=== PATIENT | female | born 1985 ===

== ENCOUNTER 2016-10-01 10:58 | Emergency (ER) | payer MEDICARE, MEDICAID ==
[2016-10-01 11:07] VITALS: BP 144/66; PULSE 76; RESP 18; TEMP 98; O2SAT 99
[2016-10-01 11:08] VITALS: BMI 43.1
[2016-10-01] MEDS ORDERED: Sodium Chloride 0.9% 500 ML IV STA (11:24)
--- NOTE | 2016-10-01 11:27 | ED PDOC ---
HPI: Back Time Seen by Provider: 10/01/16 11:16 Chief Complaint (Nursing): Back Pain Chief Complaint (Provider): Back pain History Per: Patient History/Exam Limitations: no limitations Onset/Duration Of Symptoms: Days (3) Current Symptoms Are (Timing): Still Present Additional Complaint(s): Pt. with R flank pain for 3 days. Increased frequency of urination. No dysuria. No abd pain. No nausea, vomit, diarrhea, headaches, chest pain, dyspnea. No neck pain. Past Medical History Reviewed: Nursing Documentation, Vital Signs Vital Signs: Last Vital Signs Temp 98 F 10/01/16 11:07 Pulse 76 10/01/16 11:07 Resp 18 10/01/16 11:07 BP 144/66 10/01/16 11:07 Pulse Ox 99 10/01/16 11:07 - Medical History PMH: Asthma - Surgical History Other surgeries: gastric bypass - Family History Family History: States: Unknown Family Hx - Social History Current smoker - smoking cessation education provided: No Alcohol: None Drugs: Denies - Immunization History Hx Tetanus Toxoid Vaccination: No Hx Influenza Vaccination: No Hx Pneumococcal Vaccination: No - Home Medications Home Medications: Ambulatory Orders Medication Instructions Recorded Albuterol HFA [Ventolin HFA 90 2 puff IH [id number] PRN #60 puff 12/31/13 mcg/actuation (8 g)] Promethazine DM [Phenergan DM 10 ml PO QID PRN #120 ml 12/31/13 Syrup] Sulfamethoxazole/Trimethopri 1 tab PO BID #20 tab 12/31/13 [Bactrim Ds 800 mg-160 mg] Albuterol HFA [Ventolin HFA 90 1 puff IH ASDIR #1 unit 01/30/15 mcg/actuation (8 g)] Azithromycin [Zithromax Z-Art] 250 mg PO DAILY #1 packet 01/30/15 Benzonatate [Tessalon Perles] 200 mg PO Q8H PRN #30 tab 01/30/15 Albuterol HFA [Ventolin HFA 90 2 puff IH [id number] #1 inhaler 06/10/15 mcg/actuation (8 g)] Azithromycin [Zithromax] 250 mg PO DAILY #6 tab 06/10/15 Guaifenesin/Dextromethorphan 20 ml PO Q4H PRN #1 bottle 06/10/15 [Delsym Cough+Chest Cngst Dm Lq] Prednisone 50 mg PO DAILY #4 tab 06/10/15 Olopatadine 0.1% Opht [Patanol 5 1 drop BOTHEYES BID #1 bottle 07/19/15 Ml] - Allergies Allergies/Adverse Reactions: Allergies Allergy/AdvReac Type Severity Reaction Status Date / Time No Known Allergies Allergy Verified 01/30/15 12:24 Review of Systems ROS Statement: Except As Marked, All Systems Reviewed And Found Negative Musculoskeletal: Positive for: Back Pain Physical Exam - Reviewed Nursing Documentation Reviewed: Yes Vital Signs Reviewed: Yes - Physical Exam Appears: Positive for: Non-toxic, No Acute Distress Head Exam: Positive for: ATRAUMATIC, NORMAL INSPECTION, NORMOCEPHALIC Skin: Positive for: Normal Color, Warm, DRY Eye Exam: Positive for: EOMI, Normal appearance, PERRL ENT: Positive for: Normal ENT Inspection Neck: Positive for: Normal, Painless ROM Cardiovascular/Chest: Positive for: Regular Rate, Rhythm Respiratory: Positive for: CNT, Normal Breath Sounds Gastrointestinal/Abdominal: Positive for: Bowel Sounds, Soft, Tenderness (mild left mid abd) Back: Positive for: Normal Inspection, R CVA Tenderness. Negative for: L CVA Tenderness Extremity: Positive for: Normal ROM Neurologic/Psych: Positive for: Alert, Oriented - Laboratory Results Result Diagrams: 10/01/16 11:50 10/01/16 11:50 Interpretation Of Abn Labs: no acute - ECG O2 Sat by Pulse Oximetry: 99 Pulse Ox Interpretation: Normal - CT Scan/US ct Other Rad Studies (CT/US): Read By Radiologist Other Rad Interpretation: no acute - Progress ED Course And Treament: 1320: Pt. stable. AAOx3. Tolerated PO with no issues. Ambulating. Disposition - Clinical Impression Clinical Impression: Back pain - Patient ED Disposition Is Patient to be Admitted: No Counseled Patient/Family Regarding: Studies Performed, Diagnosis, Need For Followup - Disposition Referrals: [facility] [Outside] - 10/02/16 Disposition: Routine/Home Disposition Time: 13:22 Condition: STABLE Additional Instructions: Return if not better in 3 days. Instructions: Back Pain (ED)
[2016-10-01 12:07] LABS: BASO # 0.1 K/uL (0.0-0.2); BASO % 0.9 % (0.0-2.0); EOS # 0.1 K/uL (0.0-0.7); EOS % 1.1 % (0.0-4.0); HEMOGLOBIN 12.4 g/dL (12.0-16.0); LYMPH # 1.3 K/uL (1.0-4.3); LYMPH % 17.5 % (20.0-40.0); MEAN CELL VOLUME 89.6 fl (81.0-99.0); MEAN CORPUSCULAR HEMOGLOBIN 29.6 pg (27.0-31.0); MEAN PLATELET VOLUME 11.1 fl (7.2-11.7); MONO # 0.6 K/uL (0.0-0.8); MONO % 8.4 % (0.0-10.0); NEUT # 5.3 K/uL (1.8-7.0); NEUT % 72.1 % (50.0-75.0); NRBC % 0.1 % (0.0-0.0); RBC 4.17 Mil/uL (3.80-5.20); RED CELL DISTRIBUTION WIDTH 13.7 % (11.5-14.5); WHITE BLOOD COUNT 7.4 K/uL (4.8-10.8)
[2016-10-01 12:19] LABS: ALB/GLOB RATIO 1.2 (1.0-2.1); ALT/SGPT 30 U/L (9-52); AST/SGOT 23 U/L (14-36); BLOOD UREA NITROGEN 16 mg/dl (7-17); CALCIUM 9.1 mg/dL (8.4-10.2); GFR AFRICAN-AMERICAN > 60; GFR NON-AFRICAN AMERICAN > 60; LIPASE 131 U/L (23-300)
--- NOTE | 2016-10-01 13:09 | CT ---
PROCEDURE: CT abdomen and pelvis dated 10/01/2016 HISTORY: R/O stone COMPARISON: None. TECHNIQUE: Contiguous axial images of the abdomen and pelvis. Oral contrast was administered. No IV contrast given. Coronal and Sagittal reformats generated. Radiation dose: Total exam DLP = 987.91 mGy-cm. This CT exam was performed using one or more of the following dose reduction techniques: Automated exposure control, adjustment of the mA and/or kV according to patient size, and/or use of iterative reconstruction technique. FINDINGS: LOWER THORAX: Minimal atelectasis and or scarring changes left lung base. Lung huggins are otherwise clear without infiltrate effusion or pneumothorax. There is a small hiatal hernia with wall thickening of the distal esophagus that could be due to protrusion of gastric mucosa this patient was apparent status post gastric sleeve procedure. Clinical correlation with history recommended LIVER: Liver is mildly enlarged measuring nearly 20 cm in CC dimension. Mild diffuse fatty hepatic infiltration. No obvious hepatic mass collection or calcification. . GALLBLADDER AND BILE DUCTS: Gallbladder is physiologically distended. No evidence of intraluminal gallbladder calculi. PANCREAS: Unremarkable. No mass. No ductal dilatation. SPLEEN: Unremarkable. No splenomegaly. ADRENALS: No adrenal lesions. KIDNEYS AND URETERS: Kidneys demonstrates symmetric size. No evidence of nephrolithiasis or hydronephrosis. BLADDER: Urinary bladder is incompletely distended which may account for slight thick-walled appearance. Possibility of cystitis should be excluded with clinical correlation and urinalysis. REPRODUCTIVE: Uterus and adnexal structures grossly unremarkable APPENDIX: Normal-appearing appendix of best seen on axial image number [id number]. No periappendiceal inflammatory changes. BOWEL: Evaluation of the bowel is limited due to the lack of oral contrast material. As mentioned above, there is a small hiatal hernia. Postoperative changes of the stomach likely in the secondary to the prior gastric sleeve procedure however clinical correlation with surgical history recommended. PERITONEUM: Unremarkable. No fluid collection. No free air. Tiny fat containing umbilical hernia. . LYMPH NODES: Unremarkable. No enlarged lymph nodes. VASCULATURE: Unremarkable. No aortic aneurysm. BONES: No fracture or destructive lesion. OTHER FINDINGS: None. IMPRESSION: No evidence of nephrolithiasis hydronephrosis. Small hiatal hernia with wall thickening of the distal esophagus likely due to protrusion of gastric mucosa however esophagitis not excluded. Postoperative changes of the stomach as above. The urinary bladder is incompletely distended which may in part account for thick-walled appearance. Rule out cystitis. Mild hepatomegaly. No evidence of acute appendicitis.
== END 2016-10-01 13:31 | disposition home or self-care (01) ==
LOC: H.ER 10:58
DX: M54.9 Dorsalgia, unspecified (principal); J45.909 Unspecified asthma, uncomplicated
CPT/HCPCS: 74176; 80053; 81025; 83690; 85025; 96374; 99283; J1885; J7040

== ENCOUNTER 2017-05-07 13:23 | Emergency (ER) | payer MEDICARE, MEDICAID ==
[2017-05-07 13:23] VITALS: BMI 43.1
[2017-05-07 13:59] VITALS: BP 125/70; PULSE 55; RESP 16; TEMP 97.8; O2SAT 100
[2017-05-07] MEDS ORDERED: Sodium Chloride 0.9% 1,000 ML IV STA (16:16)
--- NOTE | 2017-05-07 16:35 | ED PDOC ---
HPI: General Adult Time Seen by Provider: 05/07/17 16:06 Chief Complaint (Nursing): GI Problem History Per: Patient History/Exam Limitations: no limitations Onset/Duration Of Symptoms: Days (x 3) Current Symptoms Are (Timing): Still Present Additional Complaint(s): is a 31 year old female who presents to the emergency department complaining of vomiting since Sunday. Patient states vomiting initially associated with headache, but now associated with nausea, malaise, fatigue, intermittent RUQ pain and lightheadedness. Patient reports diarrhea chronically since gastric sleeve of April 2016. Denies any bloody stool, bloody or bilious vomiting, focal weakness, unsteady gait or difficulty with speech. Patient reports intermittent blurry vision that started after vomiting. PMD: [place] Against Medical Advice - AMA Patient Left Against Medical Advice: The patient declines admission to the hospital and wishes to leave the Emergency Department. This action is against my medical advice. This decision was made with informed refusal. The patient was told that admission to the hospital is necessary. Explanation of the reasons why were discussed. The risks of leaving were explained to the patient and include, but are not limited to, worsening of known or currently unknown conditions, permanent disability and from undiagnosed or untreated conditions. The patient has the capacity to make this informed decision and understands my explanation of the current medical problem and risks of leaving. The patient voluntarily accepts these risks and signed an AMA form documenting our conversation. The patient was given the opportunity to ask questions and reconsider. The patient was encouraged to return to the Emergency Department at any time for further care. Past Medical History Reviewed: Historical Data, Nursing Documentation, Vital Signs Vital Signs: Last Vital Signs Temp 97.8 F 05/07/17 13:55 Pulse 55 L 05/07/17 13:55 Resp 16 05/07/17 13:55 BP 125/70 05/07/17 13:55 Pulse Ox 100 05/07/17 16:50 - Medical History PMH: Asthma - Surgical History Other surgeries: Gastric Sleeve Surgery - Family History Family History: States: Unknown Family Hx - Immunization History Hx Tetanus Toxoid Vaccination: No Hx Influenza Vaccination: No Hx Pneumococcal Vaccination: No - Home Medications Home Medications: Ambulatory Orders Medication Instructions Recorded Albuterol HFA [Ventolin HFA 90 2 puff IH [id number] PRN #60 puff 12/31/13 mcg/actuation (8 g)] Promethazine DM [Phenergan DM 10 ml PO QID PRN #120 ml 12/31/13 Syrup] Sulfamethoxazole/Trimethopri 1 tab PO BID #20 tab 12/31/13 [Bactrim Ds 800 mg-160 mg] Albuterol HFA [Ventolin HFA 90 1 puff IH ASDIR #1 unit 01/30/15 mcg/actuation (8 g)] Azithromycin [Zithromax Z-Art] 250 mg PO DAILY #1 packet 01/30/15 Benzonatate [Tessalon Perles] 200 mg PO Q8H PRN #30 tab 01/30/15 Albuterol HFA [Ventolin HFA 90 2 puff IH [id number] #1 inhaler 06/10/15 mcg/actuation (8 g)] Azithromycin [Zithromax] 250 mg PO DAILY #6 tab 06/10/15 Guaifenesin/Dextromethorphan 20 ml PO Q4H PRN #1 bottle 06/10/15 [Delsym Cough+Chest Cngst Dm Lq] Prednisone 50 mg PO DAILY #4 tab 06/10/15 Olopatadine 0.1% Opht [Patanol 5 1 drop BOTHEYES BID #1 bottle 07/19/15 Ml] Famotidine [Pepcid] 40 mg PO DAILY PRN #30 tab 05/07/17 Ondansetron [Zofran] 4 mg PO Q8H PRN #20 tab 05/07/17 - Allergies Allergies/Adverse Reactions: Allergies Allergy/AdvReac Type Severity Reaction Status Date / Time No Known Allergies Allergy Verified 01/30/15 12:24 Review of Systems ROS Statement: Except As Marked, All Systems Reviewed And Found Negative Constitutional: Positive for: Malaise, Other (Fatigue) Eyes: Positive for: Other (Intermittent blurry vision after vomiting) Cardiovascular: Positive for: Light Headedness Gastrointestinal: Positive for: Nausea, Abdominal Pain (Intermittent RUQ), Diarrhea. Negative for: Vomiting (bilious or bloody), Hematochezia Neurological: Positive for: Other ((-): focal weakness, unsteady gait, diffuilcty with speech) - ECG O2 Sat by Pulse Oximetry: 100 (RA) Pulse Ox Interpretation: Normal Medical Decision Making Medical Decision Making: Time: 16:16 Impression: Intractable Vomiting Differentials include, but not limited to: Dehydration, Electrolyte Abnormalities, Pancreatic, Cholecystitis, Gastritis Plan: - CMP - Lipase - CBC - Partial Thromboplastin Time - Prothrombin Time - Dextrose 5%-0.9% NS 500 ml - Sodium Chloride 0.9% 1,000 ml IV 1,000 mls/hr - Pepcid 20 mg IVP STAT - Zofran Inj 8 mg IV STAT - Abdomen Complete Ultrasound Pt wants to leave before workup performed. Medical risks of leaving without full workup d/w pt and she wants to leave anyway. Oriented x 3. Signed AMA consent. Scribe Attestation: Documented by Saurabh Garnett, acting as a scribe for Cecile Rubi MD. Provider Scribe Attestation: All medical record entries made by the Scribe were at my direction and personally dictated by me. I have reviewed the chart and agree that the record accurately reflects my personal performance of the history, physical exam, medical decision making, and the department course for this patient. I have also personally directed, reviewed, and agree with the discharge instructions and disposition. Disposition - Clinical Impression Clinical Impression: Vomiting - Disposition Disposition: Against Medical Advice Disposition Time: 16:30 Condition: STABLE Additional Instructions: RETURN TO ER SOON POSSIBLE FOR EVALUATION Prescriptions: Famotidine [Pepcid] 40 mg PO DAILY PRN #30 tab PRN Reason: reflux Ondansetron [Zofran] 4 mg PO Q8H PRN #20 tab PRN Reason: Nausea/Vomiting Instructions: Against Medical Advice (ED) Forms: [employer] (Bulgarian)
== END 2017-05-07 16:30 | disposition left against medical advice (07) ==
LOC: H.ER 13:23
DX: R11.2 Nausea with vomiting, unspecified (principal); R10.9 Unspecified abdominal pain

== ENCOUNTER 2017-05-08 10:38 | Emergency (ER) | payer MEDICARE, MEDICAID ==
[2017-05-08 10:39] VITALS: BMI 43.1
[2017-05-08 11:06] VITALS: BP 113/69; PULSE 68; RESP 16; TEMP 98; O2SAT 100
[2017-05-08] MEDS ORDERED: Sodium Chloride 0.9% 1,000 ML IV STA (12:05)
[2017-05-08] MEDS ORDERED: Iohexol 240 (50 ml) PO ONE (12:05)
--- NOTE | 2017-05-08 12:05 | ED PDOC ---
HPI: Abdomen Time Seen by Provider: 05/08/17 11:41 Chief Complaint (Nursing): GI Problem Chief Complaint (Provider): Abd pain History Per: Patient History/Exam Limitations: no limitations Onset/Duration Of Symptoms: Days (3) Current Symptoms Are (Timing): Still Present Additional Complaint(s): Pt. with abd pain diffuse and nausea, vomit, nonbloody. No diarrhea. No weakness. No headaches, dizziness, back pain. No chest pain, dyspnea. Here yesterday and left as she did not want to wait. No new food or drinks. Past Medical History Reviewed: Nursing Documentation, Vital Signs Vital Signs: Last Vital Signs Temp 98.0 F 05/08/17 11:02 Pulse 68 05/08/17 11:02 Resp 16 05/08/17 11:02 BP 113/69 05/08/17 11:02 Pulse Ox 100 05/08/17 12:11 - Medical History PMH: Asthma - Surgical History Other surgeries: gastric by pass surg - Family History Family History: States: Unknown Family Hx - Living Arrangements Living Arrangements: With Family - Social History Alcohol: None Drugs: Denies - Immunization History Hx Tetanus Toxoid Vaccination: No Hx Influenza Vaccination: No Hx Pneumococcal Vaccination: No - Home Medications Home Medications: Ambulatory Orders Medication Instructions Recorded Albuterol HFA [Ventolin HFA 90 2 puff IH [id number] PRN #60 puff 12/31/13 mcg/actuation (8 g)] Promethazine DM [Phenergan DM 10 ml PO QID PRN #120 ml 12/31/13 Syrup] Sulfamethoxazole/Trimethopri 1 tab PO BID #20 tab 12/31/13 [Bactrim Ds 800 mg-160 mg] Albuterol HFA [Ventolin HFA 90 1 puff IH ASDIR #1 unit 01/30/15 mcg/actuation (8 g)] Azithromycin [Zithromax Z-Art] 250 mg PO DAILY #1 packet 01/30/15 Benzonatate [Tessalon Perles] 200 mg PO Q8H PRN #30 tab 01/30/15 Albuterol HFA [Ventolin HFA 90 2 puff IH [id number] #1 inhaler 06/10/15 mcg/actuation (8 g)] Azithromycin [Zithromax] 250 mg PO DAILY #6 tab 06/10/15 Guaifenesin/Dextromethorphan 20 ml PO Q4H PRN #1 bottle 06/10/15 [Delsym Cough+Chest Cngst Dm Lq] Prednisone 50 mg PO DAILY #4 tab 06/10/15 Olopatadine 0.1% Opht [Patanol 5 1 drop BOTHEYES BID #1 bottle 07/19/15 Ml] Famotidine [Pepcid] 40 mg PO DAILY PRN #30 tab 05/07/17 Ondansetron [Zofran] 4 mg PO Q8H PRN #20 tab 05/07/17 Famotidine [Pepcid] 20 mg PO DAILY PRN #6 tab 05/08/17 - Allergies Allergies/Adverse Reactions: Allergies Allergy/AdvReac Type Severity Reaction Status Date / Time No Known Allergies Allergy Verified 01/30/15 12:24 Review of Systems ROS Statement: Except As Marked, All Systems Reviewed And Found Negative Gastrointestinal: Positive for: Nausea, Vomiting, Abdominal Pain Physical Exam - Reviewed Nursing Documentation Reviewed: Yes Vital Signs Reviewed: Yes - Physical Exam Appears: Positive for: Non-toxic, No Acute Distress Head Exam: Positive for: ATRAUMATIC, NORMAL INSPECTION, NORMOCEPHALIC Skin: Positive for: Normal Color, Warm, DRY Eye Exam: Positive for: EOMI, Normal appearance, PERRL ENT: Positive for: Normal ENT Inspection Neck: Positive for: Normal, Painless ROM Cardiovascular/Chest: Positive for: Regular Rate, Rhythm Respiratory: Positive for: CNT, Normal Breath Sounds Gastrointestinal/Abdominal: Positive for: Bowel Sounds, Soft, Tenderness ( diffuse) Back: Positive for: Normal Inspection. Negative for: L CVA Tenderness, R CVA Tenderness Extremity: Positive for: Normal ROM. Negative for: Tenderness, Pedal Edema Neurologic/Psych: Positive for: Alert, Oriented - Laboratory Results Result Diagrams: 05/08/17 12:30 05/08/17 12:30 Interpretation Of Abn Labs: no acute Urine dip results: Negative for: Leukocyte Esterase, Nitrate - ECG O2 Sat by Pulse Oximetry: 100 - CT Scan/US ct Other Rad Studies (CT/US): Read By Radiologist Other Rad Interpretation: enteritis; 4cm cyst - Progress ED Course And Treament: 1608: Stable. AAOx3. No lower abd pain. Tolerated po. Disposition - Clinical Impression Clinical Impression: Abdominal pain, Enteritis - Patient ED Disposition Is Patient to be Admitted: No Counseled Patient/Family Regarding: Studies Performed, Diagnosis, Need For Followup - Disposition Referrals: [facility] [Outside] - 05/09/17 Disposition Time: 16:10 Condition: STABLE Additional Instructions: Return if not better in 3 days. Prescriptions: Famotidine [Pepcid] 20 mg PO DAILY PRN #6 tab PRN Reason: Pain Instructions: Acute Abdominal Pain (ED), Ovarian Cyst (ED) Forms: [employer] (Jordanian), [facility] ED School/Work Excuse - POA Present On Arrival: None
[2017-05-08 12:47] LABS: BASO % 0.4 % (0.0-2.0); EOS # 0.1 K/uL (0.0-0.7); EOS % 1.2 % (0.0-4.0); HEMOGLOBIN 11.5 g/dL (12.0-16.0); LYMPH % 22.4 % (20.0-40.0); MEAN CELL VOLUME 90.7 fl (81.0-99.0); MEAN CORPUSCULAR HEMOGLOBIN 29.1 pg (27.0-31.0); MEAN CORPUSCULAR HGB CONC 32.1 g/dL (33.0-37.0); MEAN PLATELET VOLUME 10.9 fl (7.2-11.7); MONO # 0.8 K/uL (0.0-0.8); MONO % 8.6 % (0.0-10.0); NEUT # 5.9 K/uL (1.8-7.0); NEUT % 67.4 % (50.0-75.0); RBC 3.94 Mil/uL (3.80-5.20); RED CELL DISTRIBUTION WIDTH 14.8 % (11.5-14.5); WHITE BLOOD COUNT 8.7 K/uL (4.8-10.8)
[2017-05-08 12:57] LABS: ALB/GLOB RATIO 1.1 (1.0-2.1); ALBUMIN 3.6 g/dL (3.5-5.0); ALT/SGPT 29 U/L (9-52); AST/SGOT 21 U/L (14-36); BLOOD UREA NITROGEN 20 mg/dl (7-17); CALCIUM 8.8 mg/dL (8.4-10.2); GFR AFRICAN-AMERICAN > 60; GFR NON-AFRICAN AMERICAN > 60; LIPASE 119 U/L (23-300)
[2017-05-08] MEDS ORDERED: Iohexol 240 (50 ml) ONE (13:19)
[2017-05-08] MEDS ORDERED: Sodium Chloride 0.9% 50 ML IV ONE (15:13)
[2017-05-08] MEDS ORDERED: Iodixanol 320 MG/ML 100 ML BOTTLE IV ONE (15:14)
--- NOTE | 2017-05-08 16:00 | CT ---
PROCEDURE: CT Abdomen and Pelvis with contrast HISTORY: abd pain COMPARISON: Comparison is made with the previous study dated 10/01/2016 TECHNIQUE: Contrast dose: 95 mL of Visipaque 320. Axial and reformatted coronal and sagittal CT images of the abdomen and pelvis were obtained after IV and oral contrast administration Radiation dose: Total exam DLP = 972.52 mGy-cm. This CT exam was performed using one or more of the following dose reduction techniques: Automated exposure control, adjustment of the mA and/or kV according to patient size, and/or use of iterative reconstruction technique. FINDINGS: LOWER THORAX: Unremarkable. LIVER: Unremarkable. No gross lesion or ductal dilatation. GALLBLADDER AND BILE DUCTS: Unremarkable. PANCREAS: Unremarkable. No gross lesion or ductal dilatation. SPLEEN: Unremarkable. ADRENALS: Unremarkable. No mass. KIDNEYS AND URETERS: Unremarkable. No hydronephrosis. No solid mass. VASCULATURE: Unremarkable. No aortic aneurysm. BOWEL: There is diffuse small bowel wall thickening noted more prominent at the mid and upper abdomen suspicious for enteritis. No evidence of bowel obstruction. No evidence of colitis. The patient status post sleeve gastrectomy. APPENDIX: There is no evidence of appendicitis. PERITONEUM: Unremarkable. No free fluid. No free air. LYMPH NODES: Unremarkable. No enlarged lymph nodes. BLADDER: Unremarkable. REPRODUCTIVE: There is 4 x 3.4 centimeter cyst at the right adnexa. BONES: No acute fracture. OTHER FINDINGS: None. IMPRESSION: Diffuse mild wall thickening of the proximal and mid small bowel suspicious for enteritis. 4 centimeter cyst at the right adnexa can be further evaluated by ultrasound if clinically warranted.
== END 2017-05-08 16:15 | disposition home or self-care (01) ==
LOC: H.ER 10:38
DX: K52.9 Noninfective gastroenteritis and colitis, unspecified (principal)
CPT/HCPCS: 74177; 80053; 81025; 83690; 85025; 96374; 99283; J1885; J2405; J7040; Q9966; Q9967

== ENCOUNTER 2017-05-24 14:04 | Emergency (ER) | payer MEDICARE, MEDICAID ==
[2017-05-24 14:04] VITALS: BMI 43.1
[2017-05-24 14:21] VITALS: BP 115/73; PULSE 53; RESP 16; TEMP 97; O2SAT 100
--- NOTE | 2017-05-24 15:19 | ED PDOC ---
Upper Extremity Pain/Injury Time Seen by Provider: 05/24/17 14:23 Chief Complaint (Nursing): Finger,Hand,&Wrist Chief Complaint (Provider): Left finger pain History Per: Patient History/Exam Limitations: no limitations Onset/Duration Of Symptoms: Days (x 2 weeks) Current Symptoms Are (Timing): Still Present Additional Complaint(s): 31 year old female presents to the ER complaining of pain to the left middle finger and knuckle, for 2 weeks. 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 Seen and given splint in another ER but came in today due to persistent pain. Patient is able to move all digits. PMD: Dr. Hernandez Past Medical History Reviewed: Historical Data, Nursing Documentation, Vital Signs Vital Signs: Last Vital Signs Temp 97.0 F L 05/24/17 14:19 Pulse 53 L 05/24/17 14:19 Resp 16 05/24/17 14:19 BP 115/73 05/24/17 14:19 Pulse Ox 100 05/24/17 14:19 - Medical History PMH: Asthma - Surgical History Other surgeries: Bariatric surgery - Family History Family History: States: Unknown Family Hx - Social History Current smoker - smoking cessation education provided: No Alcohol: None Drugs: Denies - Immunization History Hx Tetanus Toxoid Vaccination: No Hx Influenza Vaccination: No Hx Pneumococcal Vaccination: No - Home Medications Home Medications: Ambulatory Orders Medication Instructions Recorded Albuterol HFA [Ventolin HFA 90 2 puff IH [id number] PRN #60 puff 12/31/13 mcg/actuation (8 g)] Promethazine DM [Phenergan DM 10 ml PO QID PRN #120 ml 12/31/13 Syrup] Sulfamethoxazole/Trimethopri 1 tab PO BID #20 tab 12/31/13 [Bactrim Ds 800 mg-160 mg] Albuterol HFA [Ventolin HFA 90 1 puff IH ASDIR #1 unit 01/30/15 mcg/actuation (8 g)] Azithromycin [Zithromax Z-Art] 250 mg PO DAILY #1 packet 01/30/15 Benzonatate [Tessalon Perles] 200 mg PO Q8H PRN #30 tab 01/30/15 Albuterol HFA [Ventolin HFA 90 2 puff IH [id number] #1 inhaler 06/10/15 mcg/actuation (8 g)] Azithromycin [Zithromax] 250 mg PO DAILY #6 tab 06/10/15 Guaifenesin/Dextromethorphan 20 ml PO Q4H PRN #1 bottle 06/10/15 [Delsym Cough+Chest Cngst Dm Lq] Prednisone 50 mg PO DAILY #4 tab 06/10/15 Olopatadine 0.1% Opht [Patanol 5 1 drop BOTHEYES BID #1 bottle 07/19/15 Ml] Famotidine [Pepcid] 40 mg PO DAILY PRN #30 tab 05/07/17 Ondansetron [Zofran] 4 mg PO Q8H PRN #20 tab 05/07/17 Famotidine [Pepcid] 20 mg PO DAILY PRN #6 tab 05/08/17 - Allergies Allergies/Adverse Reactions: Allergies Allergy/AdvReac Type Severity Reaction Status Date / Time No Known Allergies Allergy Verified 05/24/17 14:19 Review of Systems ROS Statement: Except As Marked, All Systems Reviewed And Found Negative Musculoskeletal: Positive for: Other (left middle finger pain) Skin: Negative for: Lesions, Bruising Neurological: Negative for: Weakness, Numbness, Other (tingling) Physical Exam - Reviewed Nursing Documentation Reviewed: Yes Vital Signs Reviewed: Yes - Physical Exam Appears: Positive for: Well, Non-toxic, No Acute Distress Head Exam: Positive for: ATRAUMATIC, NORMAL INSPECTION, NORMOCEPHALIC Skin: Positive for: Normal Color, Warm, Dry Eye Exam: Positive for: Normal appearance Neck: Positive for: Normal Respiratory: Negative for: Respiratory Distress Pulses-Radial (L): 2+ Pulses-Radial (R): 2+ Extremity: Positive for: Normal ROM (with full ROM of all digits), Capillary Refill (<2 sec), Swelling (Mild swelling over left 3rd digit at MCP). Negative for: Deformity Neurologic/Psych: Positive for: Alert, Oriented - ECG O2 Sat by Pulse Oximetry: 100 (RA) Pulse Ox Interpretation: Normal Medical Decision Making Medical Decision Making: Time: 14:52 Initial Plan: * x-ray left hand XRAY LEFT HAND: No demonstrated fracture or dislocation, as read by radiologist. Pt informed of negative x-ray, all questions answered. Stable for d/c home. Advised to follow up with hand specialist, referral provided. Scribe Attestation: Documented by Lyubov Maher, acting as a scribe for Dana Beckwith PA-C Provider Scribe Attestation: All medical record entries made by the Scribe were at my direction and personally dictated by me. I have reviewed the chart and agree that the record accurately reflects my personal performance of the history, physical exam, medical decision making, and the department course for this patient. I have also personally directed, reviewed, and agree with the discharge instructions and disposition. Disposition - Clinical Impression Clinical Impression: Hand pain - Patient ED Disposition Is Patient to be Admitted: No Counseled Patient/Family Regarding: Diagnosis, Need For Followup - Disposition Referrals: Cynthia Torres MD [Staff Provider] - Disposition: Routine/Home Disposition Time: 15:18 Condition: GOOD Additional Instructions: Tylenol or motrin as needed for pain. Instructions: Hand Pain (DC) Forms: [employer] [facility] (Congolese) - POA Present On Arrival: None
--- NOTE | 2017-05-24 15:30 | RAD ---
PROCEDURE: Left Hand Radiographs. HISTORY: 3rd mcp pain COMPARISON: None. FINDINGS: BONES: No acute fracture. JOINTS: Unremarkable. SOFT TISSUES: Normal. OTHER FINDINGS: None. IMPRESSION: No demonstrated fracture or dislocation.
== END 2017-05-24 15:26 | disposition home or self-care (01) ==
LOC: H.ER 14:04
DX: M79.642 Pain in left hand (principal)

== ENCOUNTER 2017-05-30 14:11 | Emergency (ER) | payer MEDICARE, MEDICAID ==
[2017-05-30 14:12] VITALS: BMI 43.1
[2017-05-30 14:46] VITALS: TEMP 98.4; O2SAT 99
--- NOTE | 2017-05-30 15:37 | ED PDOC ---
HPI: Female Pain Time Seen by Provider: 05/30/17 15:07 Chief Complaint (Nursing): Female Genitourinary Chief Complaint (Provider): Female Genitourinary History Per: Patient History/Exam Limitations: no limitations Additional Complaint(s): Sienna Perez is a 31 year old female that presents to the ED with a chief complaint of being 4 days late for her period. Contrary to triage, patient denies any nausea, vomiting, or dizziness. Of note: This is the patient's 4th visit to the ER this month. Past Medical History Reviewed: Historical Data, Nursing Documentation, Vital Signs Vital Signs: Last Vital Signs Temp 98.4 F 05/30/17 14:44 Pulse 50 L 05/30/17 14:44 Resp 16 05/30/17 14:44 BP 115/70 05/30/17 14:44 Pulse Ox 99 05/30/17 14:44 - Medical History PMH: Asthma - Family History Family History: States: Unknown Family Hx - Immunization History Hx Tetanus Toxoid Vaccination: No Hx Influenza Vaccination: No Hx Pneumococcal Vaccination: No - Home Medications Home Medications: Ambulatory Orders Medication Instructions Recorded Albuterol HFA [Ventolin HFA 90 2 puff IH [id number] PRN #60 puff 12/31/13 mcg/actuation (8 g)] Promethazine DM [Phenergan DM 10 ml PO QID PRN #120 ml 12/31/13 Syrup] Sulfamethoxazole/Trimethopri 1 tab PO BID #20 tab 12/31/13 [Bactrim Ds 800 mg-160 mg] Albuterol HFA [Ventolin HFA 90 1 puff IH ASDIR #1 unit 01/30/15 mcg/actuation (8 g)] Azithromycin [Zithromax Z-Art] 250 mg PO DAILY #1 packet 01/30/15 Benzonatate [Tessalon Perles] 200 mg PO Q8H PRN #30 tab 01/30/15 Albuterol HFA [Ventolin HFA 90 2 puff IH [id number] #1 inhaler 06/10/15 mcg/actuation (8 g)] Azithromycin [Zithromax] 250 mg PO DAILY #6 tab 06/10/15 Guaifenesin/Dextromethorphan 20 ml PO Q4H PRN #1 bottle 06/10/15 [Delsym Cough+Chest Cngst Dm Lq] Prednisone 50 mg PO DAILY #4 tab 06/10/15 Olopatadine 0.1% Opht [Patanol 5 1 drop BOTHEYES BID #1 bottle 07/19/15 Ml] Famotidine [Pepcid] 40 mg PO DAILY PRN #30 tab 05/07/17 Ondansetron [Zofran] 4 mg PO Q8H PRN #20 tab 05/07/17 Famotidine [Pepcid] 20 mg PO DAILY PRN #6 tab 05/08/17 - Allergies Allergies/Adverse Reactions: Allergies Allergy/AdvReac Type Severity Reaction Status Date / Time No Known Allergies Allergy Verified 05/24/17 14:19 Review of Systems ROS Statement: Except As Marked, All Systems Reviewed And Found Negative Gastrointestinal: Negative for: Nausea, Vomiting Genitourinary Female: Positive for: Other (Four days late for period) Neurological: Negative for: Dizziness Physical Exam - Reviewed Nursing Documentation Reviewed: Yes Vital Signs Reviewed: Yes - Physical Exam Appears: Positive for: Non-toxic, No Acute Distress Head Exam: Positive for: ATRAUMATIC, NORMOCEPHALIC Skin: Positive for: Normal Color, Warm Eye Exam: Positive for: EOMI, Normal appearance, PERRL Cardiovascular/Chest: Positive for: Regular Rate, Rhythm. Negative for: Murmur Respiratory: Positive for: Normal Breath Sounds. Negative for: Wheezing Gastrointestinal/Abdominal: Positive for: Normal Exam, Soft. Negative for: Tenderness Neurologic/Psych: Positive for: Alert, Oriented. Negative for: Motor/Sensory Deficits - ECG O2 Sat by Pulse Oximetry: 99 (RA) Pulse Ox Interpretation: Normal Medical Decision Making Medical Decision Making: Impression: Menstrual Cycle Delayed by 4 Days Plan: * Urine Dip * Urine Preg * Reevaluation 15:30 test negative. Patient is stable for discharge home, advised to follow up with PMD. Clinical Impression: Test Negative Scribe Attestation: Documented by Mary Bhardwaj, acting as a scribe for Kassi Barlow MD. Provider Scribe Attestation: All medical record entries made by the Scribe were at my direction and personally dictated by me. I have reviewed the chart and agree that the record accurately reflects my personal performance of the history, physical exam, medical decision making, and the department course for this patient. I have also personally directed, reviewed, and agree with the discharge instructions and disposition. Disposition - Clinical Impression Clinical Impression: test negative - Disposition Disposition: Routine/Home Disposition Time: 15:30 Condition: GOOD Additional Instructions: FOLLOW-UP WITH PMD. Instructions: Tests Forms: [email or web address] (Taiwanese)
[2017-05-30 17:06] VITALS: BP 119/70; PULSE 66; RESP 18
== END 2017-05-30 16:19 | disposition home or self-care (01) ==
LOC: H.ER 14:11
DX: R42 Dizziness and giddiness (principal); Z32.02 Encounter for pregnancy test, result negative; J45.909 Unspecified asthma, uncomplicated

== ENCOUNTER 2017-09-27 10:03 | Emergency (ER) | payer MEDICARE, MEDICAID ==
[2017-09-27 10:11] VITALS: BP 119/74; PULSE 62; TEMP 98; O2SAT 98; BMI 35.7
--- NOTE | 2017-09-27 10:31 | ED PDOC ---
Lower Extremity Pain/Injury Time Seen by Provider: 09/27/17 10:16 Chief Complaint (Nursing): Abdominal Pain Chief Complaint (Provider): left hip pain History Per: Patient History/Exam Limitations: no limitations Onset/Duration Of Symptoms: Days (yesterday) Current Symptoms Are (Timing): Still Present Additional Complaint(s): Pt. with left hip pain. Ongoing for 3 months. No injury. No numbness, tingles , weakness, headaches. No dysuria or pelvic/abd pain. Pain on walking. No back pain. No nausea, vomit, incontinence, constipation. Past Medical History Reviewed: Nursing Documentation, Vital Signs Vital Signs: Last Vital Signs Temp 98 F 09/27/17 10:10 Pulse 62 09/27/17 10:10 Resp BP 119/74 09/27/17 10:10 Pulse Ox 98 09/27/17 10:10 - Medical History PMH: Asthma - Surgical History Other surgeries: gastric sleeve - Family History Family History: States: Unknown Family Hx - Immunization History Hx Tetanus Toxoid Vaccination: No Hx Influenza Vaccination: No Hx Pneumococcal Vaccination: No - Home Medications Home Medications: Ambulatory Orders Medication Instructions Recorded Albuterol HFA [Ventolin HFA 90 2 puff IH [id number] PRN #60 puff 12/31/13 mcg/actuation (8 g)] Promethazine DM [Phenergan DM 10 ml PO QID PRN #120 ml 12/31/13 Syrup] Sulfamethoxazole/Trimethopri 1 tab PO BID #20 tab 12/31/13 [Bactrim Ds 800 mg-160 mg] Albuterol HFA [Ventolin HFA 90 1 puff IH ASDIR #1 unit 01/30/15 mcg/actuation (8 g)] Azithromycin [Zithromax Z-Art] 250 mg PO DAILY #1 packet 01/30/15 Benzonatate [Tessalon Perles] 200 mg PO Q8H PRN #30 tab 01/30/15 Albuterol HFA [Ventolin HFA 90 2 puff IH [id number] #1 inhaler 06/10/15 mcg/actuation (8 g)] Azithromycin [Zithromax] 250 mg PO DAILY #6 tab 06/10/15 Guaifenesin/Dextromethorphan 20 ml PO Q4H PRN #1 bottle 06/10/15 [Delsym Cough+Chest Cngst Dm Lq] Prednisone 50 mg PO DAILY #4 tab 06/10/15 Olopatadine 0.1% Opht [Patanol 5 1 drop BOTHEYES BID #1 bottle 07/19/15 Ml] Famotidine [Pepcid] 40 mg PO DAILY PRN #30 tab 05/07/17 Ondansetron [Zofran] 4 mg PO Q8H PRN #20 tab 05/07/17 Famotidine [Pepcid] 20 mg PO DAILY PRN #6 tab 05/08/17 Ibuprofen [Motrin] 600 mg PO TID 7 Days tab 09/27/17 - Allergies Allergies/Adverse Reactions: Allergies Allergy/AdvReac Type Severity Reaction Status Date / Time No Known Allergies Allergy Verified 09/27/17 10:14 Review of Systems Constitutional: Negative for: Weakness Cardiovascular: Negative for: Chest Pain Respiratory: Negative for: Shortness of Breath Gastrointestinal: Negative for: Nausea, Vomiting, Abdominal Pain, Diarrhea Musculoskeletal: Positive for: Leg Pain. Negative for: Neck Pain, Shoulder Pain , Arm Pain, Back Pain, Foot Pain Neurological: Negative for: Weakness Physical Exam - Reviewed Nursing Documentation Reviewed: Yes Vital Signs Reviewed: Yes - Physical Exam Appears: Positive for: Well, Non-toxic, No Acute Distress Neck: Positive for: Normal, Painless ROM, Supple Cardiovascular/Chest: Positive for: Regular Rate, Rhythm Respiratory: Positive for: CNT, Normal Breath Sounds Gastrointestinal/Abdominal: Positive for: Normal Exam, Soft. Negative for: Tenderness Back: Positive for: Normal Inspection. Negative for: L CVA Tenderness, R CVA Tenderness Extremity: Positive for: Normal ROM, Tenderness (left hip mild). Negative for: Pedal Edema, Calf Tenderness Neurologic/Psych: Negative for: Motor/Sensory Deficits - ECG O2 Sat by Pulse Oximetry: 98 Pulse Ox Interpretation: Normal - Radiology X-Ray: Interpreted by Me, Viewed By Me X-Ray Interpretation: No Acute Disease - Progress ED Course And Treament: 1119: Stable. AAOx3. Pain free. Tolerated PO. Fu with pcp. Ambulated with no issues. Disposition - Clinical Impression Clinical Impression: Hip pain - Patient ED Disposition Is Patient to be Admitted: No Counseled Patient/Family Regarding: Studies Performed, Diagnosis, Need For Followup, Rx Given - Disposition Referrals: [facility] [Outside] - 09/28/17 Disposition: Routine/Home Disposition Time: 11:20 Condition: STABLE Additional Instructions: Return if not better in 3 days. Prescriptions: Ibuprofen [Motrin] 600 mg PO TID 7 Days tab Instructions: Hip Pain Forms: [facility] (Gibraltarian), [facility] ED School/Work Excuse
[2017-09-27 11:24] VITALS: RESP 18
--- NOTE | 2017-09-27 12:34 | RAD ---
PROCEDURE: Left Hip X-ray Radiographs. HISTORY: pain COMPARISON: None. FINDINGS: BONES: No evidence of acute displaced fracture nor dislocation. The osseous structures intact. Both femoral heads are appropriately located within the respective acetabula JOINTS: The joint spaces preserved. No significant degenerative osteoarthritis. SOFT TISSUES: Normal. OTHER FINDINGS: None. IMPRESSION: Normal left hip radiographs.
== END 2017-09-27 11:53 | disposition home or self-care (01) ==
LOC: H.ER 10:03
DX: M25.552 Pain in left hip (principal)

== ENCOUNTER 2017-11-12 18:47 | Emergency (ER) | payer MEDICARE, MEDICAID ==
[2017-11-12 18:47] VITALS: BMI 35.7
[2017-11-12 19:20] VITALS: O2SAT 100
--- NOTE | 2017-11-12 20:53 | ED PDOC ---
Lower Extremity Pain/Injury Time Seen by Provider: 11/12/17 20:27 Chief Complaint (Nursing): Lower Extremity Problem/Injury Chief Complaint (Provider): Lower Extremity Problem/Injury History Per: Patient History/Exam Limitations: no limitations Onset/Duration Of Symptoms: Hrs Current Symptoms Are (Timing): Still Present Additional Complaint(s): 31 y/o female presents to the ED after injuring her right calf while at kickboxing earlier today. Patient states that when her leg struck the bag, she felt a pop as if something was tearing. Patient reports immediate pain that has been persistent since the injury. Patient reports of difficulty ambulating. Otherwise: (-) medications prior to arrival, (-) prior calf injury, (-) shortness of breath, (-) prolonged immobility, (-) fever, (-) chills, (-) other complaints at this time. PMD: Nancy Hodges LNMP: 11/04/2017 Past Medical History Reviewed: Historical Data, Nursing Documentation, Vital Signs Vital Signs: Last Vital Signs Temp 96.3 F L 11/12/17 19:20 Pulse 61 11/12/17 19:20 Resp 16 11/12/17 19:20 BP 98/46 L 11/12/17 19:20 Pulse Ox 100 11/12/17 19:20 - Medical History PMH: Asthma - Surgical History Other surgeries: Gastric Sleeve - Family History Family History: States: Unknown Family Hx - Home Medications Home Medications: Ambulatory Orders Medication Instructions Recorded Albuterol HFA [Ventolin HFA 90 2 puff IH [id number] PRN #60 puff 12/31/13 mcg/actuation (8 g)] Promethazine DM [Phenergan DM 10 ml PO QID PRN #120 ml 12/31/13 Syrup] Sulfamethoxazole/Trimethopri 1 tab PO BID #20 tab 12/31/13 [Bactrim Ds 800 mg-160 mg] Albuterol HFA [Ventolin HFA 90 1 puff IH ASDIR #1 unit 01/30/15 mcg/actuation (8 g)] Azithromycin [Zithromax Z-Art] 250 mg PO DAILY #1 packet 01/30/15 Benzonatate [Tessalon Perles] 200 mg PO Q8H PRN #30 tab 01/30/15 Albuterol HFA [Ventolin HFA 90 2 puff IH [id number] #1 inhaler 06/10/15 mcg/actuation (8 g)] Azithromycin [Zithromax] 250 mg PO DAILY #6 tab 06/10/15 Guaifenesin/Dextromethorphan 20 ml PO Q4H PRN #1 bottle 06/10/15 [Delsym Cough+Chest Cngst Dm Lq] Prednisone 50 mg PO DAILY #4 tab 06/10/15 Olopatadine 0.1% Opht [Patanol 5 1 drop BOTHEYES BID #1 bottle 07/19/15 Ml] Famotidine [Pepcid] 40 mg PO DAILY PRN #30 tab 05/07/17 Ondansetron [Zofran] 4 mg PO Q8H PRN #20 tab 05/07/17 Famotidine [Pepcid] 20 mg PO DAILY PRN #6 tab 05/08/17 Ibuprofen [Motrin] 600 mg PO TID 7 Days tab 09/27/17 Acetaminophen [Acetaminophen 8 650 mg PO Q8 PRN #21 tablet.er 11/12/17 Hour] Ibuprofen [Motrin Tab] 600 mg PO Q6 PRN #20 tab 11/12/17 - Allergies Allergies/Adverse Reactions: Allergies Allergy/AdvReac Type Severity Reaction Status Date / Time No Known Allergies Allergy Verified 09/27/17 10:14 Review of Systems ROS Statement: Except As Marked, All Systems Reviewed And Found Negative Constitutional: Negative for: Fever, Chills Respiratory: Negative for: Shortness of Breath Musculoskeletal: Positive for: Leg Pain (RIGHT CALF ) Physical Exam - Reviewed Nursing Documentation Reviewed: Yes Vital Signs Reviewed: Yes - Physical Exam Comments: GENERAL APPEARANCE: Patient is resting comfortably, ambulatory with a limp, awake, alert, oriented x 3, in no acute distress. SKIN: Warm, dry; (-) cyanosis. LOWER EXTREMITY: Calf: (+) diffuse tenderness of the right calf, (+) small effusion, (-) warmth, (-) palpable cord, (-) erythema, (-) ecchymosis. Rest of Lower Extremity: (+) Full ROM of the ankle, knee and foot. (-) tenderness. CHEST AND RESPIRATORY: (-) rales, (-) rhonchi, (-) wheezes; breath sounds equal bilaterally. HEART AND CARDIOVASCULAR: (-) irregularity; (-) murmur, (-) gallop, (+) distal pulses NEUROLOGIC: (+) distal sensation. - ECG O2 Sat by Pulse Oximetry: 100 (RA) Pulse Ox Interpretation: Normal Medical Decision Making Medical Decision Making: Time: 2033 Impression: Acute calf injury, likely partial gastrocnemius tear Plan: -- Toradol 30 mg IM -- Tylenol 650 mg PO -- Re-evaluation [address] Geronimo who recommends U/S evaluation. U/S lower extremity ordered. 2344 U/S report reviewed. IMPRESSION: 3.3 x 1.7 x 3.8 cm mildly complex fluid collection in the mid calf at the site of injury. This could be due to a small hematoma but is somewhat nonspecific. No abnormal blood flow. MRI evaluation may be helpful if indicated. Thank you for allowing us to participate in the care of your patient. Dictated and Authenticated by: Oren Thrasher MD 11/12/2017 10:38 PM Eastern Time ([place] & [place]) Posterior short leg splint applied by solids control technicianpatricia Beatty. Placement and application verified by Cy MONCADA. NV intact after splint placement. Patient educated on splint care. Patient supplied with crutches and instructed on crutch walking. Given return precautions, not limited to increased pain, swelling, or paresthesias. On re-evaluation, patient reports improvement of symptoms. On exam, patient remains AAOx3, in no acute distress. On exam, neck is supple, lungs CTA, cardiac RRR, neuro exam shows no focal findings. VSS, stable for discharge. RICE encouraged. Diagnostic results d/w the patient in great detail. Dx of calf strain, probable gastrocnemius tear d/w the patient. Based on history, exam and diagnostic results plan will be for discharge and outpatient follow up with ortho. Advised to follow up with primary care physician/ortho in 1-2 days without fail. Advised to take medication as prescribed. Return to the emergency room at any time for any new or worsening symptoms. Patient states she fully agrees with and understands discharge instructions. States that she agrees with the plan and disposition. Verbalized and repeated discharge instructions and plan. I have given the patient opportunity to ask any additional questions. Scribe Attestation: Documented by Baylee Nuñez, acting as a scribe for Ceci Benoit PA-C. Provider Scribe Attestation: All medical record entries made by the Scribe were at my direction and personally dictated by me. I have reviewed the chart and agree that the record accurately reflects my personal performance of the history, physical exam, medical decision making, and the department course for this patient. I have also personally directed, reviewed, and agree with the discharge instructions and disposition. Disposition - Clinical Impression Clinical Impression: Strain of calf muscle, Gastrocnemius muscle tear - Patient ED Disposition Is Patient to be Admitted: No Counseled Patient/Family Regarding: Studies Performed, Diagnosis, Need For Followup, Rx Given - Disposition Referrals: Yevgeniy Montoya MD [Medical Doctor] - Disposition: Routine/Home Disposition Time: 23:49 Condition: STABLE Additional Instructions: The emergency medical care you received today was directed at your acute symptoms. If you were prescribed any medication, please fill it and take as directed. It may take several days for your symptoms to resolve. Return to the Emergency Department if your symptoms worsen, do not improve, or if you have any other problems. Please contact your doctor in 2 days for re-evaluation and follow up / or call one of the physicians/clinics you have been referred to that are listed on the Patient Visit Information form that is included in your discharge packet. Bring any paperwork you were given at discharge with you along with any medications you are taking to your follow up visit. Our treatment cannot replace ongoing medical care by a primary care provider (PCP) outside of the emergency department. KEEP SPLINT INTACT, CLEAN, AND DRY. REST, ICE, ELEVATE. Prescriptions: Acetaminophen [Acetaminophen 8 Hour] 650 mg PO Q8 PRN #21 tablet.er PRN Reason: Pain, Moderate (4-7) Ibuprofen [Motrin Tab] 600 mg PO Q6 PRN #20 tab PRN Reason: Pain, Moderate (4-7) Instructions: Muscle Strain, Lower Extremity Muscle Strain Forms: [employer] (Cuban) Print Language: MALAY - POA Present On Arrival: None
[2017-11-13 00:13] VITALS: BP 130/78; PULSE 78; RESP 18; TEMP 98
--- NOTE | 2017-11-13 11:19 | US ---
Date of service: 11/12/2017 PROCEDURE: Lower extremity nonvascular ultrasound HISTORY: r/o gastrocnemius tear COMPARISON: None. TECHNIQUE: Standard protocol for this study/examination. FINDINGS: Mid calf soft tissue mass 3.7 x 1.7 x 3.3 cm. This likely represents a complex fluid collection. This masses nonvascular. IMPRESSION: Complex fluid collection/soft tissue mass left calf corresponding to the findings on physical examination. Concordant results (preliminary interpretation) provided by [facility]. Procedure Completed: 21:52 Preliminary ([facility]) Report: Dictated and Authenticated: 22:38 Final Interpretation: 11:17
== END 2017-11-13 00:12 | disposition home or self-care (01) ==
LOC: H.ER 18:47
DX: S86.811A Strain of other muscle(s) and tendon(s) at lower leg level, right leg, initial encounter (principal); X50.9XXA Other and unspecified overexertion or strenuous movements or postures, initial encounter; Y92.89 Other specified places as the place of occurrence of the external cause
CPT/HCPCS: 29515; 76881; 96372; 99284; J1885